=== PATIENT | female | born 1940 | race Caucasian/White ===

== ENCOUNTER → 2017-01-25 | Outpatient (CLI) | payer MEDICARE, BC ==
[~2017-01-25] MED LIST: ACETAMINOPHEN PO; ALLEGRA PO; ASPIRIN EC81 M1 PO; ATROVENT 0.03%30 ML; ATROVENT HFA12.9 G1 INH; CALCIUM + D 6001 TA1 PO; CALCIUM 600 + D1 TAB PO; CENTRUM PO; CO Q-10150 MG PO; CO Q10100 MG PO; COLACE PO; DOXYCYCLIN25 MG/5 ML; ESTRADIOL0.5 MG PO; ESTROVEN ENER400 MCG PO; ESTROVEN NIGHT1 EAC1 PO; GABAPENTIN300 M2 PO; HUMIBID-LA600 MG PO; INDERAL LA160 MG PO; LEVOTHROID150 MCG PO; LEVOTHYROXINE137 MCG PO; LEVOTHYROXINE150 MCG PO; LEVOXYL0.137 MG PO; LORTAB 10-5001 EACH PO; LORTAB 5/500 TA1 TA1 PO; MOBIC PO; MOBIC15 MG PO; MUCINEX D ER T1 EACH PO; MUCINEX DM TABL1 BOX PO; NASAL SPRAY ORI30 ML; NEURONTIN300 MG; NEURONTIN300 MG PO; OMEPRAZOLE40 M1 PO; OYSTER CALCIUM500 MG PO; PREMARIN0.625 MG PO; PRILOSEC PO; PRILOSEC20 M1 PO; PROAIR HFA8.5 GM; PROAIR HFA8.5 GM INH; PROPRANOLOL HCL80 M1 PO; RECLAST 55 MG/100 M INJ; ROBAXIN500 MG PO; SINGULAIR PO; SULFAMETHOXAZOL1 TA4 PO; SYMBICORT; TRAMADOL HCL E100 MG PO; TRAMADOL HCL50 M1 PO; VITAMIN D 3; VITAMIN D2000 UNI1 PO; VITAMIN E100 UNIT PO; ZANTAC150 MG; ZOLOFT100 MG PO
--- NOTE | ~2017-01-25 | EKG ---
PATIENT: INGRID HAY UNIT #: [id number] Ventricular Rate: 56 BPM Atrial Rate: 56 BPM P-R Interval: 200 ms QRS Duration: 80 ms Q-T Interval: 418 ms QTC Calculation(Bezet): 403 ms P [place]: 24 degrees Calculated R [place]: 3 degrees Calculated T [place]: 29 degrees Diagnosis Line: Sinus bradycardia Diagnosis Line: Minimal voltage criteria for LVH, may be normal Diagnosis Line: variant Diagnosis Line: Borderline ECG Diagnosis Line: No previous ECGs available Diagnosis Line: Confirmed by BRAYAN CHEN MD ([id number]) on Diagnosis Line: 01/25/2017 4:15:23 PM INTERPRETING MD: GUSTAVO DAVIES
[2017-01-25 09:47] LABS: HEMATOCRIT 38.1 % (35.0-45.0); HEMOGLOBIN 12.6 gm/dL (12.0-16.0); MEAN CELL VOLUME 90.9 FL (83-96); MEAN CORPUSCULAR HEMOGLOBIN 30.1 PG (28-34); MEAN CORPUSCULAR HGB CONC 33.1 g/dL (30-36); MEAN PLATELET VOLUME 8.7 FL (6.5-11.5); RED BLOOD COUNT 4.19 X10e (3.90-5.30); RED CELL DISTRIBUTION WIDTH 14.9 % (11.0-15.5); WHITE BLOOD COUNT 9.6 X10e3 (4.0-10.5)
[2017-01-25 09:55] LABS: BUN/CREATININE RATIO 25.38; CALCIUM SERUM 9.7 mg/dL (8.4-10.2); CREATININE SERUM 1.3 mg/dL (0.6-1.4); GLOM FILT RATE Estimated 42.4 mL/min (>60); POTASSIUM 4.3 mmol/L (3.5-5.1)
== END | disposition home or self-care (01) ==
LOC: CAMB 07:55
PROVIDERS: Specialist
DX: Z01.818 Encounter for other preprocedural examination (principal); R00.1 Bradycardia, unspecified
CPT/HCPCS: 36415; 80048; 85027; 93005

== ENCOUNTER → 2017-02-01 | Day surgery (SDC) | payer MEDICARE, BC ==
--- NOTE | ~2017-02-01 | OR ---
Unit #: [id number] #: [id number] Patient: INGRID HAY [id number] [facility] [address] [place], [place] [address] [id number] O MR#: [id number] NAME: INGRID HAY ROOM: Date of Procedure: 02/01/2017 Admission Date: 02/01/2017 Surgeon: Edouard Rangel M.D. : 1940 Attending Physician: Edouard Rangel M.D. Referring Physician: Edouard Rangel M.D. Primary Care Physician: Zia Borrero M.D. 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 PROCEDURE PERFORMED Excisional biopsy of perineal labial sebaceous cyst of approximately 1 cm. ANESTHESIA General endotracheal anesthesia. ESTIMATED BLOOD LOSS Less than 10 mL. INDICATIONS FOR PROCEDURE Ms. Hay is a 76-year-old female, who came to the office with complaints of a chronic recurrent infected cyst in the distal portion of the labia and mostly over the perineal body. She said that it has become infected on several occasions previously had spontaneously drained, but at this time it did not drain. She was put on a course of outpatient oral antibiotics and is brought in today for definitive resection of the cyst. DESCRIPTION OF PROCEDURE The patient was admitted to [facility], positively identified, transported to the operating room, and after induction of general endotracheal anesthesia, she was placed in lithotomy position. On examination, the acute infection had resolved and she had a readily visible small palpable subcutaneous sebaceous cyst. Local anesthetic was infiltrated to create a field block. An incision was made in the skin over the cyst and the cyst was dissected out of its subcutaneous tissues completely removing the cyst wall. We irrigated and cauterized the subcutaneous tissue. The skin was closed with 4-0 Monocryl interrupted sutures and Dermabond skin adhesive. Sponges and needle counts were correct x3. The patient tolerated the procedure well and was transported to recovery in stable condition. Findings and postoperative instructions were discussed with her . Dictated by... Edouard Rangel M.D. Unit #: [id number] #: [id number] Patient: INGRID HAY/dimitri TD: 02/01/2017 10:41 JOB #: [id number] OPERATIVE REPORT X Edouard Rangel MD PROCEDURE OPERATIVE NOTE
== END | disposition home or self-care (01) ==
LOC: CSUR 07:17
DX: N94.89 Other specified conditions associated with female genital organs and menstrual cycle (principal); L72.0 Epidermal cyst; L08.89 Other specified local infections of the skin and subcutaneous tissue; K21.9 Gastro-esophageal reflux disease without esophagitis; I10 Essential (primary) hypertension; J44.9 Chronic obstructive pulmonary disease, unspecified; N39.3 Stress incontinence (female) (male); J45.909 Unspecified asthma, uncomplicated; E03.9 Hypothyroidism, unspecified; D64.9 Anemia, unspecified; Z88.0 Allergy status to penicillin; Z88.5 Allergy status to narcotic agent; Z79.82 Long term (current) use of aspirin; M19.90 Unspecified osteoarthritis, unspecified site; M81.0 Age-related osteoporosis without current pathological fracture
CPT/HCPCS: 88304; J2405; J3010

== ENCOUNTER 2017-02-04 20:50 | Emergency (ER) | payer MEDICARE, BC ==
[~2017-02-04 20:50] MED LIST changes: -ASPIRIN EC81 M1 PO; -ATROVENT HFA12.9 G1 INH; -DOXYCYCLIN25 MG/5 ML; -ESTROVEN NIGHT1 EAC1 PO; -LEVOXYL0.137 MG PO; -MUCINEX D ER T1 EACH PO; -NASAL SPRAY ORI30 ML; -NEURONTIN300 MG PO; -OMEPRAZOLE40 M1 PO; -PROPRANOLOL HCL80 M1 PO; -TRAMADOL HCL E100 MG PO
[2017-02-04 20:52] LABS: BASOPHIL% 0.4 % (0-2.5); HEMATOCRIT 44.6 % (35.0-45.0); HEMOGLOBIN 14.5 gm/dL (12.0-16.0); LYMPHOCYTE# 1.2 X10e3 (1.0-3.5); LYMPHOCYTE% 24.5 % (17.0-45.0); MEAN CELL VOLUME 91.6 FL (83-96); MEAN CORPUSCULAR HEMOGLOBIN 29.7 PG (28-34); MEAN CORPUSCULAR HGB CONC 32.5 g/dL (30-36); MEAN PLATELET VOLUME 9.1 FL (6.5-11.5); MONOCYTE# 0.5 X10e3 (0-1.0); MONOCYTE% 10.3 % (3.0-12.0); NEUTROPHIL# 3.2 X10e3 (1.5-7.1); NEUTROPHIL% 64.8 % (40-75); PLATELET COUNT 206 X10e3 (140-420); RED BLOOD COUNT 4.87 X10e (3.90-5.30); RED CELL DISTRIBUTION WIDTH 15.2 % (11.0-15.5)
[2017-02-04 20:53] LABS: DIFF IND NO
[2017-02-04 21:12] LABS: ALBUMIN SERUM 4.1 g/dL (3.5-5.0); BILIRUBIN, DIRECT 0.1 mg/dL (0.0-0.2); BILIRUBIN,INDIRECT 0.7 mg/dL (0.0-0.9); BILIRUBIN,TOTAL 0.8 mg/dL (0.2-2.0); BUN/CREATININE RATIO 16.66; CALCIUM SERUM 9.4 mg/dL (8.4-10.2); CREATININE SERUM 1.2 mg/dL (0.6-1.4); GLOM FILT RATE Estimated 46.5 mL/min (>60); POTASSIUM 3.6 mmol/L (3.5-5.1); PROTEIN TOTAL SERUM 7.1 g/dL (6.0-8.3)
[2017-02-04 21:37] LABS: URINE SOURCE CLEAN CATCH
[2017-02-04 21:39] LABS: URINE APPEARANCE CLEAR; URINE BILIRUBIN NEG (NEG); URINE BLOOD NEG (NEG); URINE COLOR YELLOW; URINE GLUCOSE NEG (NORM); URINE KETONE TRACE (NEG); URINE LEUKOCYTE ESTERASE NEG (NEG); URINE NITRATE NEG (NEG); URINE PH 5.5 (5-8); URINE PROTEIN NEG (NEG); URINE SPECIFIC GRAVITY 1.015 (1.003-1.035); URINE UROBILINOGEN 0.2 MG/DL (NORM)
[2017-02-04 21:42] LABS: MICRO INDICATED? NO
[2017-04-27] MEDS ORDERED: PROPRANOLOL HCL80 M1 PO (08:40)
[2017-04-27] MEDS ORDERED: OMEPRAZOLE40 M1 PO (08:41)
[2017-04-27] MEDS ORDERED: LEVOXYL0.137 MG PO (08:41)
[2017-04-27] MEDS ORDERED: ESTRADIOL0.5 MG PO (08:41)
[2017-04-27] MEDS ORDERED: NEURONTIN300 MG PO (08:41)
[2017-04-27] MEDS ORDERED: ZOLOFT100 MG PO (08:42)
[2017-04-27] MEDS ORDERED: ATROVENT HFA12.9 G1 INH (08:43)
[2017-04-27] MEDS ORDERED: TRAMADOL HCL E100 MG PO (08:44)
[2017-04-27] MEDS ORDERED: ESTROVEN NIGHT1 EAC1 PO (08:45)
[2017-04-27] MEDS ORDERED: MUCINEX D ER T1 EACH PO (08:45)
[2017-04-27] MEDS ORDERED: ASPIRIN EC81 M1 PO (08:46)
[2017-04-27] MEDS ORDERED: NASAL SPRAY ORI30 ML (13:07)
[2017-04-27] MEDS ORDERED: DOXYCYCLIN25 MG/5 ML (13:10)
== END 2017-02-04 22:42 | disposition home or self-care (01) ==
LOC: SED 20:50
PROVIDERS: Emergency Medicine
DX: K52.9 Noninfective gastroenteritis and colitis, unspecified (principal); J45.909 Unspecified asthma, uncomplicated; Z90.49 Acquired absence of other specified parts of digestive tract; Z90.710 Acquired absence of both cervix and uterus
CPT/HCPCS: 36415; 80048; 80076; 81003; 83690; 85025; 96374; 96375; 99284; C9113; J2405

== ENCOUNTER → 2017-03-10 | Outpatient (CLI) | payer MEDICARE, BC ==
[~2017-03-10] MED LIST changes: +ASPIRIN EC81 M1 PO; +ATROVENT HFA12.9 G1 INH; +DOXYCYCLIN25 MG/5 ML; +ESTROVEN NIGHT1 EAC1 PO; +LEVOXYL0.137 MG PO; +MUCINEX D ER T1 EACH PO; +NASAL SPRAY ORI30 ML; +NEURONTIN300 MG PO; +OMEPRAZOLE40 M1 PO; +PROPRANOLOL HCL80 M1 PO; +TRAMADOL HCL E100 MG PO
--- NOTE | ~2017-03-10 | CT57 ---
[facility] A Service of [facility] RADIOLOGY TEXT RESULTS PATIENT: INGRID HAY LOCATION: [facility] : 41 UNIT #: [id number] AGE: [address]: Audi Villela MD SEX: F ORDER DR: [id number] [facility] [address] [place], [place] [address] [id number] O MR#: [id number] Acc #: [id number] NAME: INGRID HAY. : 1940 SEX: F STUDY DATE/TIME: 03/10/2017 13:44 UNIT: [facility] ROOM: STUDY DESCRIPTION: CT Chest Wo Cont Attending Physician: Audi Villela M.D. Referring Physician: Audi Villela M.D. Ordering Physician: Audi Villela M.D. Primary Care Physician: Zia Borrero M.D. MEDICAL IMAGING REPORT This report is preliminary unless electronic signature is present EXAM CT chest without contrast. DATE OF EXAM 03/10/2017 INDICATION Lung cancer. Restaging. Observation for metastatic disease. TECHNIQUE CT of the thorax without contrast. Coronal and sagittal reconstructions were obtained. NOTE: This CT exam was performed with one or more of the following radiation dose reduction techniques: automatic exposure control, adjustment of mA and/or kV according to patient size, and iterative reconstruction. COMPARISON CT thorax dated 09/02/2016 and 02/06/2016. FINDINGS Patient is status post right lower lobectomy. There is no focal consolidation. Central airways are patent. No pericardial or pleural effusion. The thoracic aorta is normal in caliber. No pericardial or pleural effusion. Main pulmonary artery measures 2.3 cm. No acute osseous abnormalities. There is a non-healed sternal fracture. Degenerative changes are noted in the thoracic spine. IMPRESSION 1. Postsurgical change of right lower lobectomy. No evidence of recurrent or metastatic disease in the chest. [facility] A Service of [facility] RADIOLOGY TEXT RESULTS PATIENT: INGRID HAY LOCATION: [facility] : 41 UNIT #: [id number] AGE: [address]: Audi Villela MD SEX: F ORDER DR: Dictated by... Remy Levy M.D. THIS IS AN ELECTRONICALLY VERIFIED REPORT Remy Levy M.D. at 03/11/2017 8:09 AM DAVID/mathew TD: 03/10/2017 17:41 JOB #: [id number] MEDICAL IMAGING REPORT Page 1 of 1 COPY
== END | disposition home or self-care (01) ==
LOC: CCAT 12:17
DX: Z08 Encounter for follow-up examination after completed treatment for malignant neoplasm (principal); Z90.2 Acquired absence of lung [part of]; Z85.118 Personal history of other malignant neoplasm of bronchus and lung
CPT/HCPCS: 71250

== ENCOUNTER → 2017-03-10 | Outpatient (CLI) | payer MEDICARE, BC ==
--- NOTE | ~2017-03-10 | CT4 ---
[facility] A Service of [facility] RADIOLOGY TEXT RESULTS PATIENT: INGRID HAY LOCATION: [facility] : 41 UNIT #: [id number] AGE: [address]: Zia Borrero MD SEX: F ORDER DR: [id number] [facility] [address] [place], [place] [address] [id number] O MR#: [id number] Acc #: [id number] NAME: INGRID HAY. : 1940 SEX: F STUDY DATE/TIME: 03/10/2017 13:44 UNIT: [facility] ROOM: STUDY DESCRIPTION: CT Abd and Pelv Wo Cont Attending Physician: Zia Borrero M.D. Referring Physician: Zia Borrero M.D. Ordering Physician: Zia Borrero M.D. Primary Care Physician: Zia Borrero M.D. MEDICAL IMAGING REPORT This report is preliminary unless electronic signature is present EXAM CT abdomen and pelvis with contrast. INDICATIONS Abdominal pain and nausea. Bilateral flank pain. Mid abdominal pain. TECHNIQUE CT of the abdomen and pelvis without contrast. Coronal and sagittal reconstructions were obtained. This CT exam was performed with one or more of the following radiation dose reduction techniques: automatic exposure control, adjustment of mA and/or kV according to patient size, and iterative reconstruction. COMPARISON Concurrent CT chest of 03/10/2017; CT abdomen dated 02/06/2016. FINDINGS There are a few small cysts in the liver. Gallbladder is surgically absent. Pancreas, spleen, and adrenal glands are unchanged. There are a few small cysts in the kidneys. The kidneys are atrophic. No hydronephrosis. The bowel is not dilated. The abdominal aorta is normal in caliber. There is a small umbilical hernia. PELVIS: No pelvic mass or free pelvic fluid. No enlarged pelvic or inguinal lymph nodes. Patient is status post L3-S1 PLIF. There is a small umbilical hernia. IMPRESSION 1. No acute findings in the abdomen or pelvis to account for the [facility] A Service of [facility] RADIOLOGY TEXT RESULTS PATIENT: INGRID HAY LOCATION: [facility] : 41 UNIT #: [id number] AGE: [address]: Zia Borrero MD SEX: F ORDER DR: patient's symptoms. 2. Small umbilical hernia. Dictated by... Remy Levy M.D. THIS IS AN ELECTRONICALLY VERIFIED REPORT Remy Levy M.D. at 03/11/2017 8:09 AM DAVID/keisha TD: 03/10/2017 17:28 JOB #: [id number] MEDICAL IMAGING REPORT Page 1 of 1 COPY
== END | disposition home or self-care (01) ==
LOC: CCAT 12:09
DX: R10.9 Unspecified abdominal pain (principal); R11.0 Nausea; K42.9 Umbilical hernia without obstruction or gangrene
CPT/HCPCS: 74176

== ENCOUNTER → 2017-04-27 | Outpatient (CLI) | payer MEDICARE, BC | END | disposition home or self-care (01) | LOC: CSSDAY 09:00 | DX: M81.0 Age-related osteoporosis without current pathological fracture (principal) | CPT/HCPCS: 82310; 96372; J0897 ==

== ENCOUNTER → 2017-06-29 | Outpatient (CLI) | payer MEDICARE, BC ==
--- NOTE | ~2017-06-29 | MY29 ---
[facility] A Service of [facility] RADIOLOGY TEXT RESULTS PATIENT: INGRID HAY LOCATION: [facility] : 41 UNIT #: [id number] AGE: [address]: Zia Borrero MD SEX: F ORDER DR: [id number] [facility] [address] [place], [place] [address] [id number] O MR#: [id number] Acc #: [id number] NAME: INGRID HAY. : 1940 SEX: F STUDY DATE/TIME: 06/29/2017 13:35 UNIT: [facility] ROOM: STUDY DESCRIPTION: MY WALDEMAR SCREENING W/ CAD BILAT Attending Physician: Zia Borrero M.D. Ordering Physician: Zia Borrero M.D. Primary Care Physician: Zia Borrero M.D. MEDICAL IMAGING REPORT This report is preliminary unless electronic signature is present EXAM Digital screening mammogram, 06/29/2017 HISTORY 77-year-old woman no risk elevation. Prior reduction mammoplasties, 2000. Long-term hormone replacement. Annual screening. COMPARISON Mammograms date to 11/12/2005 with most recent 11/18/2015 FINDINGS Digital imaging of each breast was completed utilizing screening protocol. Review includes FDA-approved CAD device. Breast parenchyma is partially fatty replaced. Parenchymal opacities remain bilaterally. Mild focal dominance inner hemisphere left breast is stable. Occasional benign calcification in each breast. Tightly clustered microcalcifications in the left breast are stable. I see no interval occurring mass and no suspicious calcifications at this time. IMPRESSION Benign mammogram. Annual screening recommended. Patients over the age of 40 are entered into a reminder system with target due date for the next mammogram. A result letter will also be sent to the patient. BIRADS: 2 Benign finding Dictated by... Carson Pantoja M.D. [facility] A Service of [facility] RADIOLOGY TEXT RESULTS PATIENT: INGRID HAY LOCATION: [facility] : 41 UNIT #: [id number] AGE: [address]: Zia Borrero MD SEX: F ORDER DR: THIS IS AN ELECTRONICALLY VERIFIED REPORT Carson Pantoja M.D. at 06/30/2017 8:05 AM LEANNA/kj TD: 06/29/2017 21:28 JOB #: [id number] MEDICAL IMAGING REPORT Page 1 of 1 COPY
== END | disposition home or self-care (01) ==
LOC: CWCC 13:00
DX: Z12.31 Encounter for screening mammogram for malignant neoplasm of breast (principal); Z79.890 Hormone replacement therapy; Z98.890 Other specified postprocedural states
CPT/HCPCS: G0202